=== PATIENT | female | born 1960 | race Caucasian/White ===

== ENCOUNTER 2018-05-26 16:03 | Emergency (ER) | payer BC ==
[2018-05-26 17:00] LABS: #Basophils 0.1 thou/uL (0.0-0.2); #Eosinphils 0.2 thou/uL (0.0-0.7); #Lymphocytes 3.1 thou/uL (1.20-3.40); #Monocytes 0.7 thou/uL (0.11-0.59); #Neutrophils 6.7 thou/uL (1.40-6.50); %Basophils 0.8 % (0.0-1.0); %Eosinophils 2.1 % (0.0-10.0); %Lymphocytes 28.3 % (21.0-51.0); %Monocytes 6.5 % (0.0-10.0); %Neutrophils 62.3 % (42.0-75.0); Hemoglobin 14.4 g/dL (12.0-16.0); Mean Corpuscular HGB CONC 33.6 g/dL (32.0-36.0); Mean Corpuscular Hemoglobin 31.9 pg (27.0-31.0); Mean Corpuscular Volume 95.1 fL (78.0-98.0); Mean Platelet Volume 7.1 fL (7.4-10.4); Platelet Count 221 thou/uL (130-400); RBC Distribution Width 12.7 % (11.5-14.5); White Blood Cell (WBC) Count 10.8 thou/uL (4.8-10.8)
[2018-05-26 17:22] LABS: ALT (SGPT) 23 U/L (8-55); AST (SGOT) 19 U/L (5-34); Albumin 3.5 g/dL (3.5-5.0); Alkaline Phosphatase 118 U/L (40-150); Anion Gap 12 mmol/L (10-20); BUN (Urea Nitrogen) 16 mg/dL (9.8-20.1); Bilirubin, Total 0.2 mg/dL (0.2-1.2); CK (CPK) 93 U/L (29-168); Calc. Creatinine Clearance 0 mL/min (70-130); Calcium 8.5 mg/dL (7.8-10.44); Carbon Dioxide 23 mmol/L (22-29); Chloride 107 mmol/L (98-107); Estimated GFR-MDRD 81; Globulin 2.8 g/dL (2.4-3.5); Glucose 93 mg/dL (70-105); Lipase 28 U/L (8-78); Potassium 4.2 mmol/L (3.5-5.1); Protein, Total 6.3 g/dL (6.0-8.3); Sodium 138 mmol/L (136-145)
--- NOTE | 2018-05-26 17:34 | RAD ---
FRONTAL RADIOGRAPH CHEST 05/26/18 COMPARISON: 02/01/15 HISTORY: Chest pain and difficulty breathing. FINDINGS: No pneumothorax, pleural fluid, focal consolidation, or alveolar edema. Heart and mediastinal contour s appear grossly unremarkable. IMPRESSION: No acute findings. POS: [facility]
== END 2018-05-26 17:50 | disposition home or self-care (01) ==
LOC: ERS 16:03
DX: S20.211A Contusion of right front wall of thorax, initial encounter (principal); K21.9 Gastro-esophageal reflux disease without esophagitis; E78.5 Hyperlipidemia, unspecified; F17.210 Nicotine dependence, cigarettes, uncomplicated; Z79.82 Long term (current) use of aspirin; Z79.899 Other long term (current) drug therapy; W19.XXXA Unspecified fall, initial encounter
CPT/HCPCS: 36415; 71045; 80053; 82550; 83690; 84484; 85025; 93005